=== PATIENT | male | born 1975 | race Hispanic/Latino ===

== ENCOUNTER 2018-06-16 12:35 | Outpatient (CLI) | payer OTHER ==
--- NOTE | 2018-06-16 13:59 | RAD ---
LEFT FEMUR TWO VIEWS: HISTORY: Contusion to left thigh with pain in the left leg. COMPARISON: None. FINDINGS: Two views of the left femur show no evidence of acute fracture or dislocation. No degenerative ward e is seen in the hip or knee. IMPRESSION: Unremarkable examination. POS: [facility]
== END 2018-06-16 12:36 | disposition home or self-care (01) ==
LOC: BICRAD 12:35
PROVIDERS: ATTEND Family Medicine
DX: S70.12XA Contusion of left thigh, initial encounter (principal)